=== PATIENT | female | born 1980 | race Two or more races ===

== ENCOUNTER 2019-02-15 13:32 | Emergency (ER) | payer SELFPAY ==
[~2019-02-15] VITALS: Ht 170.2 cm; Wt 76.2 kg
[2019-02-15 13:32] VITALS: BP 127/70
[2019-02-15] MEDS ORDERED: BACLOFEN 10 MG TAB PO ONE (14:30)
[2019-02-15] MEDS ORDERED: KETOROLAC 60 MG/2 ML VIAL (J1885) IM ONE (14:30)
[2019-02-15] MEDS ORDERED: BACL10TA2 PO (15:30)
[2019-02-15] MEDS ORDERED: KETO10TAB PO (15:30)
== END 2019-02-15 15:38 | disposition home or self-care (01) ==
LOC: M ED 13:32
DX: M54.5 Low back pain (principal); G89.29 Other chronic pain; Z72.0 Tobacco use; Z88.0 Allergy status to penicillin; Z88.1 Allergy status to other antibiotic agents
CPT/HCPCS: 96372; 99283; J1885

== ENCOUNTER 2019-05-06 09:35 | Emergency (ER) | payer MEDICAID, SELFPAY ==
[~2019-05-06] VITALS: Ht 170.2 cm; Wt 72.8 kg
[~2019-05-06 09:35] MED LIST: BACL10TA2 PO; KETO10TAB PO
[2019-05-06] MEDS ORDERED: LIDOCAINE 2% MDV 20 ML VIAL SC ONE (10:45)
[2019-05-06] MEDS ORDERED: KETOROLAC 60 MG/2 ML VIAL (J1885) IM ONE (11:30)
[2019-05-06] MEDS ORDERED: BACT800T5 PO (11:43)
[2019-05-06 11:49] VITALS: BP 133/58
== END 2019-05-06 11:53 | disposition home or self-care (01) ==
LOC: M ED 09:35
DX: N76.2 Acute vulvitis (principal); N76.4 Abscess of vulva; Z87.42 Personal history of other diseases of the female genital tract; Z87.440 Personal history of urinary (tract) infections; F17.200 Nicotine dependence, unspecified, uncomplicated; Z88.0 Allergy status to penicillin; Z88.1 Allergy status to other antibiotic agents
CPT/HCPCS: 56405; 96372; 99283; J1885

== ENCOUNTER 2019-05-08 11:06 | Day surgery (SDC) | payer MEDICAID, SELFPAY ==
[~2019-05-08] VITALS: Ht 167.6 cm; Wt 70.9 kg
[2019-05-08] MEDS: LR 1,000 ML IV SCH (00:12)
[~2019-05-08 11:06] MED LIST changes: +BACT800T5 PO
[2019-05-08] MEDS ORDERED: KETOROLAC 30 MG/ML VIAL (J1885) IV ONE (14:30)
[2019-05-08 14:55] LABS: BASO % 0.2 % (0.0-1.0); EOS # 0.5 10^3/uL (0.0-0.50); EOS % 2.8 % (0.0-3.0); HEMATOCRIT 30.8 % (36.0-47.0); HEMOGLOBIN 9.2 g/dl (12.0-15.5); LYMPH # 1.1 10^3/uL (1.5-4.5); LYMPH % 6.5 % (24.0-44.0); MEAN CORPUSCULAR HGB CONC 29.9 g/dl (32.0-36.5); MONO # 1.5 10^3/uL (0.0-0.8); MONO % 8.8 % (0.0-5.0); NEUTROPHILS # 13.5 10^3/uL (1.8-7.7); NEUTROPHILS % 81.1 % (36.0-66.0); PLATELET COUNT, AUTOMATED 317 10^3/uL (150-450); WHITE BLOOD COUNT 16.7 10^3/uL (4.0-10.0)
[2019-05-08] MEDS ORDERED: CLINDAMYCIN 900 MG in IV 1 EA IV ONE (15:00)
[2019-05-08 15:10] LABS: ALT/SGPT 19 U/L (12-78); BILIRUBIN,TOTAL 0.2 MG/DL (0.2-1.0); BLOOD UREA NITROGEN 9 MG/DL (7-18); CALCIUM LEVEL 8.6 MG/DL (8.5-10.1); CARBON DIOXIDE LEVEL 23 MEQ/L (21-32); CHLORIDE LEVEL 108 MEQ/L (98-107); GLOMERULAR FILTRATION RATE > 60.0 (>60); GLUCOSE, FASTING 94 MG/DL (70-100); POTASSIUM SERUM 3.5 MEQ/L (3.5-5.1); SODIUM LEVEL 138 MEQ/L (136-145); TOTAL PROTEIN 6.6 GM/DL (6.4-8.2)
[2019-05-08 15:17] LABS: ERYTHROCYTE SEDIMENTATION RATE 57 mm/hr (0-20)
--- NOTE | 2019-05-08 16:10 | REP ---
Ultrasonography of the the left labia for possible cyst/abscess: Left. There are two focal lesions in the left labia. One is near the skin surface containing complex fluid measuring 2.3 x 1.3 x 1.7 cm. The second lesion is somewhat deeper, proximally 13 mm from the skin surface measuring 4.2 x 2.4 x 2.8 cm. , probably containing fluid. I suspect there is a small amount of air / gas along tin the nondependent area of this lesion, suggestive of an abscess. The lumen of the lesion is obscured by acoustic shadowing arising from the air / gas within the lesion. Electronically Signed by Dimitri Carolina MD 05/08/2019 04:01 P
[2019-05-08] MEDS ORDERED: BACT800T5 PO (17:07)
[2019-05-08] MEDS ORDERED: VENTAER INH (17:08)
[2019-05-08] MEDS ORDERED: BUPIVACAINE HCL 0.25% 30 ML VIAL As Ordered ONE (21:33)
[2019-05-08] MEDS ORDERED: ceFAZolin 2 GM/D5W 50 ML IV BAG (J0690 PER 500MG) As Ordered ONE (22:14)
[2019-05-08] MEDS ORDERED: LIDOCAINE 2% INJ 100 MG/5 ML SDV (FOR ANES.) As Ordered ONE (22:20)
[2019-05-08] MEDS ORDERED: PROPOFOL 200 MG/20 ML VIAL As Ordered ONE (22:20)
[2019-05-08] MEDS ORDERED: MIDAZOLAM INJ 2 MG/2 ML VIAL (J2250) As Ordered ONE (22:20)
[2019-05-08] MEDS ORDERED: fentaNYL 100 MCG/2 ML INJECTION (J3010) As Ordered ONE (22:20)
[2019-05-08] MEDS ORDERED: dexameTHASONE 4 MG/ML 1ML VIAL (J1100) As Ordered ONE (22:20)
[2019-05-08] MEDS ORDERED: ONDANSETRON 4MG/2ML VIAL (J2405) As Ordered ONE (22:25)
[2019-05-08] MEDS ORDERED: KETOROLAC 60 MG/2 ML VIAL (J1885) As Ordered ONE (22:44)
[2019-05-08] MEDS ORDERED: ONDANSETRON 4MG/2ML VIAL (J2405) IV PRN ×2 (23:00→23:15)
[2019-05-08] MEDS ORDERED: PERCOCET 5MG/325MG TAB PO PRN ×3 (23:00→23:15)
[2019-05-08] MEDS ORDERED: ALBUTEROL 90 MCG/ACT 8GM HFA INHALER INH PRN (23:00)
[2019-05-08] MEDS ORDERED: PROMETHAZINE INJ 25 MG/ML VIAL (J2550) IV PRN (23:00)
[2019-05-08] MEDS ORDERED: fentaNYL 100 MCG/2 ML INJECTION (J3010) IV PRN (23:15)
[2019-05-08] MEDS ORDERED: LR 1,000 ML IV SCH (23:15)
[2019-05-09 00:09] VITALS: BP 123/76
[2019-05-09 00:23] VITALS: BP 122/76
[2019-05-09 01:51] VITALS: BP 102/67
[2019-05-09 02:40] VITALS: BP 102/52
[2019-05-09 03:45] VITALS: BP 108/68
[2019-05-09] MEDS ORDERED: KETOROLAC 30 MG/ML VIAL (J1885) IV SCH (05:00)
[2019-05-09 06:04] LABS: BASO % 0.1 % (0.0-1.0); HEMATOCRIT 30.7 % (36.0-47.0); HEMOGLOBIN 9.3 g/dl (12.0-15.5); LYMPH # 0.5 10^3/uL (1.5-4.5); LYMPH % 3.9 % (24.0-44.0); MEAN CORPUSCULAR HEMOGLOBIN 23.6 pg (27.0-33.0); MEAN CORPUSCULAR HGB CONC 30.3 g/dl (32.0-36.5); MEAN CORPUSCULAR VOLUME 77.9 fl (80.0-96.0); MONO # 0.3 10^3/uL (0.0-0.8); NEUTROPHILS # 12.8 10^3/uL (1.8-7.7); NEUTROPHILS % 93.6 % (36.0-66.0); PLATELET COUNT, AUTOMATED 354 10^3/uL (150-450); RED BLOOD COUNT 3.94 10^6/uL (4.00-5.40); WHITE BLOOD COUNT 13.7 10^3/uL (4.0-10.0)
[2019-05-09 06:34] VITALS: BP 121/76
[2019-05-09] MEDS: LR 1,000 ML IV SCH (06:59)
[2019-05-09] MEDS ORDERED: DOCUSATE SODIUM 100 MG CAP PO SCH (09:00)
[2019-05-09] MEDS ORDERED: IBUP80TA PO (09:41)
--- NOTE | 2019-05-09 18:25 | RO ---
DATE OF PROCEDURE: 05/08/2019 PREOPERATIVE DIAGNOSIS: Left labial/vulvar abscess. POSTOPERATIVE DIAGNOSIS: Left labial/vulvar abscess. PROCEDURE PERFORMED: Incision and drainage of left labial/vulvar abscess. SURGEON: Dr. Felix León EMERGENCY ROOM TECHNICIAN: VINCE Lee III ANESTHESIA TYPE: General via LMA. SPECIMENS SENT TO PATHOLOGY: None. Wound cultures were sent. ESTIMATED BLOOD LOSS: 50 mL FLUIDS REPLACED: 1 liter lactated Ringer's. DRAINS: None. URINE OUTPUT: Not recorded. COMPLICATIONS: None. PREOPERATIVE ANTIBIOTICS: Ancef 2 grams IV times one section maintainer to the operating room (OR). INTRAOPERATIVE FINDINGS: Left labial/vulvar abscess about 5-6 cm in greatest dimension. It was multiloculated. INDICATION: The patient is a 38-year-old 0 with a 3-4 day history of growing left labial/vulvar abscess. It is to the point where she cannot tolerate even the slightest touch to the area. The decision was made to perform an incision and drainage (I and D) under anesthesia. DESCRIPTION OF PROCEDURE: The patient was counseled and consented on the risks, benefits, indications, and alternatives of the procedure. Informed consent was obtained. She was taken to the operating room with an IV running and placed on the operating table in the dorsal supine position. General anesthesia was administered and the airway secured without any difficulty. She was then placed in the high lithotomy position. She was prepared and draped in a normal sterile fashion. A time-out was performed per protocol. A 15 blade was used to incise the dome of the abscess which was lateral to the clitoral palm, just lateral to labia majora on the left side. The incision was approximately 2 cm in length. The hemostat was used to break up any loculations. The abscess was noted to be multiloculated. The fluid of the abscess was cultured. The abscess was drained. Copious amounts of purulent fluid were drained. Once the purulent fluid had come to a stop, the patient was reexamined. No discrete fluid collection/mass was noted, just perioperative edema. The decision was made to keep the incision open to allow healing by secondary intention. A pressure bandage was placed over this area. Sponge, lap, needle and instrument counts were correct per protocol. The patient tolerated the entire procedure very well. She was transferred to the post-anesthesia care unit (PACU) in good and stable condition.
[2019-05-10] MEDS ORDERED: IBUPROFEN 800 MG TAB PO SCH (07:00)
== END 2019-05-09 10:40 | disposition home or self-care (01) ==
LOC: M ED 11:06 → M SDC 11:07 → M MS5PR 05-09 00:04 → M SDC 05-09 10:40
PROVIDERS: ATTEND Obstetrics & Gynecology
DX: N76.4 Abscess of vulva (principal); J45.909 Unspecified asthma, uncomplicated; Z79.51 Long term (current) use of inhaled steroids
CPT/HCPCS: 36415; 56405; 76857; 80053; 83605; 85025; 85652; 86140; 87070; 87075; 87076; 87077; 87186; 96374; 99284; J0690; J1100; J1885; J2250; J2405; J3010